=== PATIENT | female | born 1970 | race Hispanic/Latino ===

== ENCOUNTER 2017-05-25 13:06 | Outpatient (CLI) | payer MEDICAID ==
--- NOTE | 2017-05-25 16:27 | XRay Report ---
XRAY LEFT HIP THREE VIEWS: 05/25/17 13:06:00 CLINICAL: Left hip pain. FINDINGS: A pacing device or neurostimulator device obscures a portion of the left hip on the AP view. No fracture or dislocation. Moderate to severe osteoarthritis with primarily acetabular eburnation and central joint space narrowing. Similar changes in the right hip. The pelvic bones are intact. Normal soft tissues. 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
== END 2017-05-25 13:07 | disposition home or self-care (01) ==
LOC: SPVIMAG 13:06
PROVIDERS: ATTEND Orthopaedic Surgery Sports Medicine
DX: M16.0 Bilateral primary osteoarthritis of hip (principal)